=== PATIENT | female | born 1980 | race Caucasian/White ===

== ENCOUNTER 2018-04-10 12:09 | Emergency (ER) | payer MEDICAID ==
[~2018-04-10] VITALS: Ht 162.6 cm; Wt 124.2 kg
[2018-04-10 12:11] VITALS: Ht 162.6 cm; Wt 124.2 kg
[2018-04-10] MEDS ORDERED: ONDANSETRON 4 MG INJ IV STA ×3 (12:24→15:22)
[2018-04-10] MEDS ORDERED: morphine 4 MG/ML VIAL IV STA ×4 (12:24→15:22)
[2018-04-10] MEDS ORDERED: SOD CHLORIDE 0.9% 1,000 ML IV STA (12:24)
[2018-04-10] MEDS ORDERED: DIPHENHYDRAMINE 50 MG INJ IV ONE (14:00)
[2018-04-10] MEDS ORDERED: FAMOTIDINE 20 MG INJ IV ONE (15:00)
[2018-04-10] MEDS ORDERED: TRAM50TA2 PO (15:25)
[2018-04-10] MEDS ORDERED: ONDA8TAB14 PO (15:25)
--- NOTE | 2018-04-10 15:29 | ERD ---
ER Documentation Chief Complaint Chief Complaint RT UPPER ABD PAIN X 5 DAYS WITH NAUSEA /VOMITING HPI 38-year-old female presents with nausea and intermittent vomiting. She also has right upper quadrant abdominal pain for last 5 days. Patient has a history of cholecystectomy. She said it feels similar to symptoms prior to cholec ystectomy. She denies any fevers. Denies lower abdominal pain, urinary complaints. She is having normal loose bowel movements she states. Denies cough or chest pain. ROS All systems reviewed and are negative except as per history of present illness. Medications Home Meds Active Scripts Ondansetron (Ondansetron Odt) 8 Mg Tab.rapdis, 8 MG PO Q6H PRN for NAUSEA AND/OR VOMITING, #8 TAB Prov:CLAUDINE MCLAUGHLIN MD 04/10/18 Tramadol HCl (Tramadol HCl) 50 Mg Tablet, 50 MG PO Q4 PRN for PAIN, #18 TAB Prov:CLAUDINE MCLAUGHLIN MD 04/10/18 Allergies Allergies: Coded Allergies: No Known Allergy (Unverified , 04/10/18) PMhx/Soc History of Surgery: Yes (appendectomy, cholecystis, tubal ligation) Anesthesia Reaction: No Hx Neurological Disorder: No Hx Respiratory Disorders: No Hx Cardiac Disorders: No Hx Psychiatric Problems: No Hx Miscellaneous Medical Probl: No Hx Alcohol Use: No Hx Substance Use: No Hx Tobacco Use: No Smoking Status: Never smoker FmHx Family History: No diabetes, No coronary disease, No other Physical Exam Vitals Vital Signs Date Temp Pulse Resp B/P (MAP) Pulse Ox O2 O2 Flow FiO2 Time Delivery Rate 04/10/18 98.5 92 18 131/74 98 12:11 (93) Physical Exam Const: No acute distress Head: Atraumatic Eyes: Normal Conjunctiva ENT: Normal External Ears, Nose and Mouth. Neck: Full range of motion. No meningismus. Resp: Clear to auscultation bilaterally Cardio: Regular rate and rhythm, no murmurs Abd: Soft, the right upper quadrant. No tenderness McBurney's point. No rebound. Non distended. Normal bowel sounds Skin: No petechiae or rashes Back: No midline or flank tenderness Ext: No cyanosis, or edema Neur: Awake and alert Psych: Normal Mood and Affect Result Diagram: 04/10/18 1256 04/10/18 1256 Results 24 hrs Laboratory Tests Test 04/10/18 12:56 White Blood Count 7.6 10^3/ul Red Blood Count 4.42 10^6/ul Hemoglobin 12.1 g/dl Hematocrit 38.9 % Mean Corpuscular Volume 88.0 fl Mean Corpuscular Hemoglobin 27.4 pg Mean Corpuscular Hemoglobin Concent 31.1 g/dl Red Cell Distribution Width 14.1 % Platelet Count 381 10^3/UL Mean Platelet Volume 9.4 fl Immature Granulocytes % 0.400 % Neutrophils % 67.0 % Lymphocytes % 22.9 % Monocytes % 7.0 % Eosinophils % 2.0 % Basophils % 0.7 % Nucleated Red Blood Cells % 0.0 /100WBC Immature Granulocytes # 0.030 10^3/ul Neutrophils # 5.1 10^3/ul Lymphocytes # 1.7 10^3/ul Monocytes # 0.5 10^3/ul Eosinophils # 0.2 10^3/ul Basophils # 0.1 10^3/ul Nucleated Red Blood Cells # 0.0 10^3/ul Urine Color YELLOW Urine Clarity CLEAR Urine pH 5.0 Urine Specific Center [place] 1.008 Urine Ketones NEGATIVE mg/dL Urine Nitrite NEGATIVE mg/dL Urine Bilirubin NEGATIVE mg/dL Urine Urobilinogen NEGATIVE mg/dL Urine Leukocyte Esterase NEGATIVE Teri/ul Urine Hemoglobin NEGATIVE mg/dL Urine Glucose NEGATIVE mg/dL Urine Total Protein NEGATIVE mg/dl Urine Test NEGATIVE Sodium Level 140 mmol/L Potassium Level 3.9 mmol/L Chloride Level 102 mmol/L Carbon Dioxide Level 24 mmol/L Anion Gap 14 Blood Urea Nitrogen 8 mg/dl Creatinine 0.69 mg/dl Est Glomerular Filtrat Rate mL/min > 60 mL/min Glucose Level 104 mg/dl Calcium Level 9.1 mg/dl Total Bilirubin 0.1 mg/dl Direct Bilirubin 0.00 mg/dl Indirect Bilirubin 0.1 mg/dl Aspartate Amino Transf (AST/SGOT) 35 IU/L Alanine Aminotransferase (ALT/SGPT) 29 IU/L Alkaline Phosphatase 87 IU/L Total Protein 7.5 g/dl Albumin 3.9 g/dl Globulin 3.60 g/dl Albumin/Globulin Ratio 1.08 Lipase 210 U/L Current Medications Medications Dose Sig/[place] Start Time Status Last (Trade) Ordered Route PRN Stop Time Admin Dose Reason Admin Sodium 1,000 ml @ Q1H STAT 04/10/18 DC 04/10/18 Chloride 1,000 mls/hr IV 12:24 12:32 04/10/18 13:23 Morphine 4 mg ONCE STAT 04/10/18 DC 04/10/18 Sulfate IV 12:24 12:32 (morphine) 04/10/18 12:25 Ondansetron 4 mg ONCE STAT 04/10/18 DC 04/10/18 HCl (Zofran IV 12:24 12:30 Inj) 04/10/18 12:25 Morphine 4 mg ONCE STAT 04/10/18 DC 04/10/18 Sulfate IV 13:34 13:38 (morphine) 04/10/18 13:35 Ondansetron 4 mg ONCE STAT 04/10/18 DC 04/10/18 HCl (Zofran IV 13:34 13:36 Inj) 04/10/18 13:35 25 mg ONCE ONCE 04/10/18 DC 04/10/18 Diphenhydrami IV 14:00 14:03 ne HCl 04/10/18 14:01 (Benadryl) Morphine 4 mg ONCE STAT 04/10/18 DC 04/10/18 Sulfate IV 14:47 14:54 (morphine) 04/10/18 14:48 Famotidine 20 mg ONCE ONCE 04/10/18 DC 04/10/18 (Pepcid Iv) IV 15:00 14:54 04/10/18 15:01 Ondansetron 4 mg ONCE STAT 04/10/18 DC HCl (Zofran IV 15:22 Inj) 04/10/18 15:23 Morphine 4 mg ONCE STAT 04/10/18 DC Sulfate IV 15:22 (morphine) 04/10/18 15:23 Procedures/MDM Patient presents with right upper quadrant abdominal pain of uncertain etiology. CBC and CMP and lipase normal. Urine shows no significant abnormalities. Margarita ent was given morphine 4 g IV as well as Zofran 4 m IV. She was given additional dose of morphine Zofran and Pepcid for prolonged ED course and recurrent pain. CT abdomen pelvis shows moderate stool throughout colon otherwise no acute findings. Normal appendix is seen. Patient presents with upper quadrant abdominal pain of uncertain etiology. May be musculoskeletal pain. There is no signs or symptoms suggest pneumonia, appendicitis, hepatobiliary disease, pancreatitis, obstruction, abscess, surgical abdomen. Doubt PE. She will be discharged home with tramadol, Zofran, primary care follow-up and return precautions. Patient was advised to take milk of magnesia for findings of constipation is called school because of pain although patient states that she is having loose bowel meds already does not want to be treated for constipation. She should return for persistent vomiting despite treatment, fevers, worsening pain or migration to the lower abdomen or with primary care doctor this week. The patient was stable with no new complaints during the ER course. Clinically, there is no current evidence to suggest meningitis, sepsis, acute abdomen, pneumonia, stroke, acute coronary syndrome, pulmonary embolism, aortic dissection or any other emergent condition appearing to require further evaluation or hospitalization. Patient counseled regarding my diagnostic impression and care plan. Prior to discharge all questions answered. Pt agrees with treatment plan and understands strict return precautions. Pt is instructed to follow up with primary care provider within 24- 48 hours. Precautionary instructions provided including instructions to return to the ER if not improving or for any worsening or changing symptoms or concerns. Departure Diagnosis: Primary Impression: Abdominal pain Abdominal location: upper abdomen, unspecified Qualified Codes: R10.10 - Upper abdominal pain, unspecified Condition: Stable Patient Instructions: Abdominal Pain Referrals: NO PRIMARY,CARE PHYSICIAN (PCP) Additional Instructions: Only abnormality seen today on examinations as constipation. Recommend milk of magnesia at home. Recheck with primary doctor. Recheck for fevers, new or worsening symptoms. CLAUDINE MCLAUGHLIN MD Apr 10, 2018 15:29
[2018-04-10 15:46] VITALS: BP 121/72; PULSE 83; RESP 18
== END 2018-04-10 15:50 | disposition home or self-care (01) ==
LOC: FTE 12:09
DX: R10.10 Upper abdominal pain, unspecified (principal); R11.2 Nausea with vomiting, unspecified
CPT/HCPCS: 36415; 74176; 80053; 81003; 83690; 84703; 85025; 96374; 96375; 96376; J1200; J2270; J2405; J7030; Z7502; Z7610